=== PATIENT | female | born 1950 | race Caucasian/White ===

== ENCOUNTER → 2018-09-02 | Day surgery (SDC) | payer BC, MEDICARE ==
[~2018-09-02] MED LIST: ACETAMINOPHEN 1,000 MG/100 ML BTL IV ONE; BUPIVACAINE 0.25% W/EPI MPF 30ML VIAL IVP ONE; DEXAMETHASONE 4 MG/ML 1ML VIAL IVP ONE; FAMOTIDINE 20MG TABLET PO ONE; FENTANYL PF 100MCG/2ML VIAL IV ONE; IBUPROFEN 400 MG TABLET PO ONE; KETOROLAC 30 MG/ML VIAL IVP ONE; LIDOCAINE 2% MDV (20MG/ML) 20ML VIAL IV ONE; MECLIZINE 25 MG TABLET PO ONE; METOCLOPRAMIDE 10 MG TABLET PO ONE; MIDAZOLAM HCL 2MG/2ML VIAL IV ONE; ONDANSETRON HCL IV 4 MG/2 ML VIAL IVP ONE; PROPOFOL 10 MG/ML VIAL IV ONE; SCOPOLAMINE 1 PATCH TDSY TD ONE
--- NOTE | 2018-09-03 09:50 | Operative Note ---
DATE OF SURGERY: 09/02/2018 Surgeon: Devin Munoz DO PREOPERATIVE DIAGNOSIS: Torn medial meniscus of the right knee. POSTOPERATIVE DIAGNOSES: 1. Torn medial meniscus, right knee. 2. Osteoarthritis of the patella, right knee. OPERATION: 1. Arthroscopic partial medial meniscectomy, right knee. 2. Arthroscopic chondroplasty of the patella, right knee. DESCRIPTION OF PROCEDURE: This 68-year-old female was taken to the operating room and placed in the supine position on the operating room table where general anesthesia was induced. The right knee was elevated, exsanguinated, and the tourniquet inflated to 300 mmHg. Arthroscopic knee buenrostro applied. Right knee prepped with Hibiclens and draped in the usual sterile fashion. An inferolateral portal was established for the 4 mm arthroscope, and initial evaluation of the joint demonstrated normal appearance of the suprapatellar pouch but there was advanced degenerative disease of the patella, severe grade 4 lesion noted in the center of the median ridge. Utilizing the rotating shaver, chondroplasty of the patella was performed to stabilize the articular cartilage there. We then re-probed the patella and found the articular cartilage to be missing in the center of the articular surface of the patella in an area of about 1 to 1.5 cm in greatest dimension with the remaining articular cartilage showing stable grade 3 changes. The trochlea appeared to be relatively spared. The medial compartment was entered, and a complex tear of the medial meniscus was present with a large flap tear being identified, and the flap was flipped up into the medial gutter. This was brought down back into the joint and then resected taking it back to the meniscosynovial junction and tapered in each direction to stabilize the remaining meniscus. The remainder of the joint appeared normal. Re-probing revealed a restored stability to the meniscus. The intracondylar notch was examined and found to be normal. The lateral compartment was entered, and some very superficial fraying of the inner border of the lateral meniscus was present but it was not unstable and it was not further disturbed. The joint was copiously irrigated and suctioned. The instruments were removed. The portals infiltrated with 0.25% Marcaine with epinephrine. Sterile dressings applied and the patient taken to the recovery room in satisfactory condition. GROSS PATHOLOGY: This patient demonstrated osteoarthritis of the patella with a full-thickness lesion and a complex tear of the medial meniscus was present as described. CC: Kami Alexander MD [facility]
== END | disposition home or self-care (01) ==
LOC: SUR 10:51
PROVIDERS: ATTEND Orthopaedic Surgery
DX: S83.231A Complex tear of medial meniscus, current injury, right knee, initial encounter (principal); M17.11 Unilateral primary osteoarthritis, right knee; K21.9 Gastro-esophageal reflux disease without esophagitis; M79.7 Fibromyalgia
CPT/HCPCS: 29881; 01400; J1885; J2405; J3010